=== PATIENT | female | born 1990 | race Caucasian/White ===

== ENCOUNTER 2022-09-20 10:00 | Outpatient (RCR) | payer OTHER, SELFPAY | END 2022-09-20 11:34 | disposition home or self-care (01) | LOC: HO.PT 10:00 | PROVIDERS: PCP Internal Medicine; Visit Provider Internal Medicine | DX: M62.89 Other specified disorders of muscle (principal) | CPT/HCPCS: 97110; 97112; 97140; 97162 ==